=== PATIENT | female | born 1990 | race Caucasian/White ===

== ENCOUNTER 2021-10-01 01:15 | Emergency (ER) | payer BC, SELFPAY ==
[2021-10-01 01:17] VITALS: BP 102/70; PULSE 86; RESP 20; TEMP 36.7; O2SAT 98; BMI 32.8
[2021-10-01 01:26] VITALS: BMI 32.8
--- NOTE | 2021-10-01 01:29 | CT_ITS ---
PROCEDURE INFORMATION: Exam: CT Cervical Spine Without Contrast Exam date and time: 10/01/2021 2:32 AM Age: 31 years old Clinical indication: Neck pain; Additional info: Neck pain, radiating; No trauma; Difficult to turn TECHNIQUE: Imaging protocol: Computed tomography of the cervical spine without contrast. Radiation optimization: All CT scans at this facility use at least one of these dose optimization techniques: automated exposure control; mA and/or kV adjustment per patient size (includes targeted exams where dose is matched to clinical indication); or iterative reconstruction. COMPARISON: No relevant prior studies available. FINDINGS: Bones/joints: No acute fracture. There is straightening of the cervical lordosis which may be positional. No subluxation. Mild degenerative spurring of the atlantoaxial joint anteriorly. Discs/Spinal canal/Neural foramina: No significant disc protrusion. No severe spinal canal stenosis. No significant neural foraminal narrowing. Lungs: Lung apices are normal. Soft tissues: Unremarkable. IMPRESSION: No acute findings.
[2021-10-01 01:37] LABS: Basophils # 0.1 K/mm3 (0-0.2); Basophils % 1.2 % (0.1-2.0); Eosinophils # 0.3 K/mm3 (0.0-0.4); Hematocrit 37.7 % (37.0-47.0); Hemoglobin 13.7 g/dL (12.2-16.2); Lymphocytes # 3.5 K/mm3 (0.7-4.5); Lymphocytes % 28.3 % (10-50); Mean Corpuscular HGB Conc 36.4 g/dL (31.8-35.4); Mean Corpuscular Hemoglobin 33.4 pg (27.0-31.2); Mean Corpuscular Volume 91.8 fl (81-99); Mean Platelet Volume 7.3 fl (7.4-10.4); Monocytes # 0.5 K/mm3 (0.1-1.0); Monocytes % 4.2 % (1.7-9.3); Neutrophils % 64.3 % (37.0-80.0); Platelet Count 314 K/mm3 (142-424); Red Cell Distribution Width 12.7 % (11.5-17.5); White Blood Count 12.5 K/mm3 (4.8-10.8)
[2021-10-01 01:45] LABS: Alanine Aminotransferase 28 U/L (12-78); Albumin Level 4.1 g/dl (3.5-5.0); Albumin/Globulin Ratio 1.3 (1.1-1.8); Alkaline Phosphatase 55 U/L (38-126); Anion Gap 7.2 mEq/L (5-15); Aspartate Amino Transferase 25 U/L (14-36); Blood Urea Nitrogen 15 mg/dl (7-17); Calcium 9.9 mg/dl (8.4-10.2); Carbon Dioxide 31 mmol/L (22.0-30.0); Chloride 104 mmol/L (98-107); Creatinine Clearance Estimated 134 mL/min (50-200); Estimated Glomerular Filt Rate 72 ml/min (>60); GFR (African American) 87 ML/MIN (>60); Globulin 3.1 g/dL (1.3-3.2); Glucose 111 mg/dl (74-100); Potassium 4.2 mmoL/L (3.5-5.1); Sodium 138 mmol/L (136-145); Total Protein,Serum 7.2 g/dl (6.3-8.2)
[2021-10-01 01:46] LABS: Bilirubin,Total < 0.1 mg/dl (0.2-1.3)
[2021-10-01 01:50] LABS: C-Reactive Protein 1.4 mg/L (0-4)
[2021-10-01 01:55] LABS: Appearance,Urine CLEAR (Clear); Bilirubin,Urine Negative (Negative); Blood, Urine Negative (Negative); Color,Urine YELLOW (Yellow); Glucose,Urine (UA) Negative (Negative); Ketones,Urine Negative (Negative); Leukocyte Esterase,Urine Negative (Negative); Microscopic, Urine URINE MICROSCOPIC (MICROSCOPIC); Nitrate,Urine Negative (Negative); Protein,Urine Negative (Negative); Urobilinogen,Urine 0.2 EU/dl (0.2)
[2021-10-01 01:56] LABS: WBC,Urine Occasional #/hpf (0-3)
[2021-10-01 02:00] LABS: HCG Qualitative, Serum Negative (Negative)
[2021-10-01 02:02] LABS: Erythrocyte Sedimentation Rate 15 mm/hr (0-20)
[2021-10-01 02:04] LABS: Procalcitonin 0.031 ng/mL (0.0-2.0)
--- NOTE | 2021-10-01 03:34 | PC.NURSE ---
pt sleeping in bed. SO at bedside.
--- NOTE | 2021-10-01 04:13 | HMH.EDNECK ---
ED Disposition Clinical Impression: Torticollis Disposition: Home, Self-Care Condition on Discharge: Good Instructions: DI for Torticollis Additional Instructions: use meds and use collar as needed - call pcp for follow up Prescriptions: predniSONE [Prednisone 20mg Tab] 20 mg PO BID #10 tab Transmission Status: Pending to [id number] Ketorolac Tromethamine [Toradol 10mg tablet] 10 mg PO Q6HP PRN #10 tab MDD 40mg/day PRN Reason: Moderate To Severe Pain Transmission Status: Pending to [id number] Tizanidine HCl [Zanaflex 4mg tab] 4 mg PO TID #21 tab Transmission Status: Pending to [id number] Referrals: Yoni Ambriz [Primary Care Provider] - - Critical Care Critical Care Time: No Attestation: On 10/01/21, the high probability of a clinically significant, sudden or life threatening deterioration of the following system(s) required my full and direct attention, intervention and personal management. The time I documented below is in addition to time spent performing reported procedures but includes the following listed in this critical care notation. Medical Decision Making - Medical Records Medical records reviewed: Yes: I reviewed the patient's medical records. - Alberto Inquiry Pt receiving controlled substance: No Vital Signs: 10/01/21 01:17 Temperature 98.1 F Temperature Source Oral Pulse Rate [Right] 86 Respiratory Rate 20 Blood Pressure [Right Arm] 102/70 L Blood Pressure Mean [Right Arm] 80 02 Sat by Pulse Oximetry 98 Oxygen Delivery Method Room Air - Lab Data Lab results reviewed: Yes: I reviewed the patient's lab results. Lab Results 10/01/21 01:25: WBC 12.5 H, RBC 4.10 L, Hgb 13.7, Hct 37.7, MCV 91.8, MCH 33.4 H, MCHC 36.4 H, RDW 12.7, Plt Count 314, MPV 7.3 L, Neut % (Auto) 64.3, Lymph % (Auto) 28.3, [place] % (Auto) 4.2, Eos % (Auto) 2.0, Baso % (Auto) 1.2, Neut # (Auto) 8.0 H, Lymph # (Auto) 3.5, [place] # (Auto) 0.5, Eos # (Auto) 0.3, Baso # (Auto) 0.1, ESR 15 10/01/21 01:25: Sodium 138, Potassium 4.2, Chloride 104, Carbon Dioxide 31 H, Anion Gap 7.2, BUN 15, Creatinine 0.90, Estimated Creat Clear 134, Estimated GFR 72, Est GFR ( Amer) 87, Glucose 111 H, Calcium 9.9, Total Bilirubin < 0.1 L, AST 25, ALT 28, Alkaline Phosphatase 55, C-Reactive Protein 1.4, Total Protein 7.2, Albumin 4.1, Globulin 3.1, Albumin/Globulin Ratio 1.3, Procalcitonin 0.031 10/01/21 01:25: Serum HCG, Qual Negative 10/01/21 01:50: Urine Color Yellow, Urine Appearance Clear, Urine pH 7.0, Ur Specific [place] 1.010, Urine Protein Negative, Urine Glucose (UA) Negative, Urine Ketones Negative, Urine Blood Negative, Urine Nitrate Negative, Urine Bilirubin Negative, Urine Urobilinogen 0.2, Ur Leukocyte Esterase Negative, Urine WBC Occasional, Ur Squamous Epith Cells 3-5 Result diagrams: 10/01/21 01:25 10/01/21 01:25 Orders (Tests/Meds): ED MEDICATIONS Generic Name Dose Route Start Last Admin Trade Name Freq PRN Reason Stop Dose Admin Sodium Chloride 1,000 mls @ 999 mls/hr 10/01/21 01:45 10/01/21 01:58 Sod Chlor 0.9% 1000ml Bag IV 10/01/21 02:45 999 mls/hr .Q1H1M DELMI Administration Sodium Chloride 10 ml 10/01/21 03:45 Sodium Chloride 0.9% 10ml Vial IV 10/31/21 03:44 NEEDED PRN to Dilute Lorazepam inj Discontinued Medications Generic Name Dose Route Start Last Admin Trade Name Freq PRN Reason Stop Dose Admin Dexamethasone Sodium Phosphate 8 mg 10/01/21 01:32 10/01/21 01:58 Dexamethasone 4mg/Ml 1ml Vial IV 10/01/21 01:33 8 mg ONCE ONE Administration Hydromorphone HCl 1 mg 10/01/21 03:44 10/01/21 03:48 Hydromorphone 2mg/Ml Syringe IV 10/01/21 03:45 1 mg ONCE ONE Administration Ketorolac Tromethamine 30 mg 10/01/21 01:32 10/01/21 01:58 Ketorolac 30mg/Ml Vial IV 10/01/21 01:33 30 mg ONCE ONE Administration Lorazepam 1 mg 10/01/21 03:45 10/01/21 03:48 Lorazepam 2mg/Ml Vial IV 10/01/21 03:46 1 mg
[2021-10-01 04:49] VITALS: BP 115/63; PULSE 75; RESP 16; TEMP 36.7; O2SAT 95
== END 2021-10-01 04:59 | disposition home or self-care (01) ==
PROVIDERS: Emergency Provider Emergency Medicine; PCP Pediatrics
DX: M43.6 Torticollis (principal)
CPT/HCPCS: 72125; 80053; 81001; 84145; 84703; 85025; 85651; 86140; 96361; 96374; 96375; 99284; J2405

== ENCOUNTER 2022-08-06 13:28 | Emergency (ER) | payer BC, SELFPAY ==
[2022-08-06 14:00] VITALS: BP 121/74; PULSE 101; RESP 18; TEMP 37.1; O2SAT 99; BMI 32.8
[2022-08-06 14:14] LABS: Apearance,Urine Clear (Clear); Bilirubin,Urine Negative (Negative); Blood, Urine Negative (Negative); Color,Urine Yellow (Yellow); Glucose,Urine (UA) Negative (Negative); Ketones,Urine Negative (Negative); Protein,Urine Trace (Negative); UTC Leukocyte Esterase,Urine Negative (Negative); UTC Nitrate,Urine Negative (Negative); Urobilinogen,Urine 0.2 EU/dl (0.2)
[2022-08-06 14:19] LABS: UTC Strep Screen (Rapid) Negative (Negative)
[2022-08-06 14:20] LABS: UTC Pregnancy Test, Urine Negative (Negative)
--- NOTE | 2022-08-06 14:33 | EXP.UTC ---
Discharge Plan Disposition Patient Disposition: Home, Self-Care Condition: Good Prescriptions Prescriptions: New methylprednisolone [Medrol (Vaibhav)] 4 mg tablets,dose pack See Rx Instructions .Route .COMPLEX 6 Days Qty: 21 0RF Rx Instructions: taper pack; amoxicillin-pot clavulanate 875-125 mg Tablet 1 tab PO Q12H Qty: 20 0RF fluticasone propionate [Flonase Allergy Relief] 50 mcg/actuation spray,suspension 1 - 2 spray intranasal DAILY Qty: 16 0RF Rx Instructions: administer into each nostril No Action cyclobenzaprine 10 MG tablet 10 mg PO Q8HP PRN (Reason: back spasm) prednisone 20 MG tablet 20 mg PO BID Qty: 10 0RF tizanidine 4 MG tablet 4 mg PO TID Qty: 21 0RF ketorolac 10 MG tablet 10 mg PO Q6HP MDD 40mg/day PRN (Reason: Moderate To Severe Pain) Qty: 10 0RF Rx Instructions: Therapy initiated with IV/IM dose Referrals Follow up/Referrals: Yoni Ambriz [Primary Care Provider] - See instructions Activity Restrictions/Add. Instructions Additional Instructions/Restrictions: *Monitor Temp, Over the counter Motrin or Tylenol as directed/as needed Tylenol every 4 hours and Motrin every 6 hours (as long as your family doctor has told you that you can take it) for fever or pain. and straight to ER if unable to lower temp less than 101.0 after medication given *Warm salt water gargles may help to soothe the throat *Throat Lozenges? *Warm fluids like tea with honey may help to soothe the throat? *Sleep elevated *Humidifier/Vaporizer *Flonase 2 sprays in each nostril daily but be aware that it may take 2-3 days before you notice improvement Take medication as prescribed Your throat swab was sent for culture. Those results are typically sent to your primary care. Be sure to follow up in 2-3 days with your family doctor/primary care physician if no improvement so they can review those result and treat if necessary. If you don?t have a primary care doctor, I recommend you get one but in the mean time, you will have to return to a walk in clinic Follow up IMMEDIATELY for new or worsening symptoms or no Noticeable improvement over the next 48-72 hours. 911 for difficulty breathing or swallowing Clinical Impressions Clinical Impression: Sinusitis Stand Alone Forms Stand Alone Forms: Work/School Release Instructions Patient Instructions: Sinusitis, Middle Ear Infection, DI for Sinusitis, DI for Sciatica [place] [facility] [place] General Stated complaint: sore throat, body aches, ear pain, Rt side pain Mode of Arrival: Ambulatory Source of Information: Patient Limitations: No Limitations Time Seen by Provider: 08/06/22 14:33 Description of Symptoms (Recalled from Triage Doc. by RN): PATIENT C/O SORE THROAT, BODY ACHES, EAR ACHE, AND RIGHT FLANK PAIN SINCE YESTERDAY HEENT Symptoms (Recalled from RN notes): Yes Resp Symptoms (Recalled from RN notes): No Skin Symptoms (Recalled from RN notes): No MS Symptoms (Recalled from RN notes): No Functional Status (Recalled from RN notes): WNL History of Present Illness Provider Complaint: Patient states that she has been having sore throat, sinus pain and pressure, bilateral ear pain and pressure feeling achy with chills and having achy like pain in her right lower back that goes into her right buttock that is worse at times with movement and sitting States that she has been sick for several days with no improvement and today she was feeling worse so she came in to get checked Related Data Home Medications Medication Instructions Recorded Confirmed cyclobenzaprine 10 mg tablet 10 mg PO Q8HP PRN back spasm 10/01/21 10/01/21 Previous Rx's Medication Instructions Recorded ketorolac 10 mg tablet 10 mg PO Q6HP PRN Moderate To 10/01/21 Severe Pain #10 tabs prednisone 20 mg tablet 20 mg PO BID #10 tabs 10/01/21 tizanidine 4 mg tablet 4 mg PO TID #21 tabs 10/01/21 amoxicill
[2022-08-06 14:47] VITALS: BP 121/74; PULSE 101; RESP 18; TEMP 37.1; O2SAT 99
== END 2022-08-06 14:50 | disposition home or self-care (01) ==
PROVIDERS: Emergency Provider Nurse Practitioner; PCP Pediatrics
DX: J01.90 Acute sinusitis, unspecified (principal); H66.93 Otitis media, unspecified, bilateral; M54.31 Sciatica, right side
CPT/HCPCS: 81003; 81025; 87880; 99204; 99212; G0463

== ENCOUNTER 2023-06-18 20:28 | Emergency (ER) | payer BC, SELFPAY ==
[2023-06-18 20:38] VITALS: BP 121/92; PULSE 86; RESP 18; TEMP 36.4; O2SAT 99; BMI 31.3
--- NOTE | 2023-06-18 20:38 | PC.NURSE ---
I concur with this SN assessment/triage.
--- NOTE | 2023-06-18 20:46 | ED_ITS ---
<Statement entered by Margarita Newell MD - 06/18/23 22:23> I was consulted by the SALLY, and we discussed the complexity of the problems being addressed. I approved the treatment and management plan for this patient's care in the emergency department, thus performing a substantive portion of the medical decision making. Margarita Newell MD, MIGUEL, FACEP Discharge Plan Disposition Patient Disposition: Home, Self-Care Condition: Good Prescriptions Prescriptions: New sulfamethoxazole-trimethoprim [Bactrim DS] 800-160 mg tablet 1 tab PO BID 10 Days Qty: 20 0RF No Action cyclobenzaprine 10 MG tablet 10 mg PO Q8HP PRN (Reason: back spasm) prednisone 20 MG tablet 20 mg PO BID Qty: 10 0RF tizanidine 4 MG tablet 4 mg PO TID Qty: 21 0RF ketorolac 10 MG tablet 10 mg PO Q6HP MDD 40mg/day PRN (Reason: Moderate To Severe Pain) Qty: 10 0RF Rx Instructions: Therapy initiated with IV/IM dose methylprednisolone [Medrol (Vaibhav)] 4 mg tablets,dose pack See Rx Instructions .Route .COMPLEX 6 Days Qty: 21 0RF Rx Instructions: taper pack; amoxicillin-pot clavulanate 875-125 mg Tablet 1 tab PO Q12H Qty: 20 0RF fluticasone propionate [Flonase Allergy Relief] 50 mcg/actuation spray,suspension 1 - 2 spray intranasal DAILY Qty: 16 0RF Rx Instructions: administer into each nostril Referrals Follow up/Referrals: Toñito Rangel MD [Primary Care Provider] - See instructions Activity Restrictions/Add. Instructions Additional Instructions/Restrictions: Please stay hydrated and you may take Tylenol every 8 hours as needed for pain alternating every 4 hours with Motrin. Please call make an appointment within 48 hours to be reevaluated by your PCP. Please return to ER for any worsening or change in symptoms. Clinical Impressions Clinical Impression: Pyelonephritis Discharge ED Provider: Margarita Newell General Adult HPI General Chief complaint: PAIN Stated complaint: right side back pain, painful urination Time Seen by Provider: 06/18/23 20:34 Mode of Arrival: Ambulatory Source of Information: Patient Limitations: No Limitations Description of Symptoms (Recalled from ER Triage Doc. by RN): Pt reports to ED with complaints of right flank pain radiating to right back. Pain has been present for 5 days. Pt also reports pain with urinating. Taking OTC AZO and muscle relaxer. Denies any hx of kidney stones. History of Present Illness HPI narrative: Patient presents for 5 days of right flank pain. Patient states that she has suffered no known trauma although she is caring for her father who is currently ill. Patient however is developed burning with urination over the last 3 days. She does not report any hematuria or vaginal discharge. She denies fever nausea vomiting diarrhea hemoptysis hematochezia melena hematemesis. Related Data Home Medications Medication Instructions Recorded Confirmed cyclobenzaprine 10 mg tablet 10 mg PO Q8HP PRN back spasm 10/01/21 10/01/21 Previous Rx's Medication Instructions Recorded ketorolac 10 mg tablet 10 mg PO Q6HP PRN Moderate To 10/01/21 Severe Pain #10 tabs prednisone 20 mg tablet 20 mg PO BID #10 tabs 10/01/21 tizanidine 4 mg tablet 4 mg PO TID #21 tabs 10/01/21 amoxicillin 875 mg-potassium 1 tab PO Q12H #20 tabs 08/06/22 clavulanate 125 mg tablet fluticasone propionate 50 1 - 2 spray intranasal DAILY #16 08/06/22 mcg/actuation nasal grams spray,suspension (Flonase Allergy Relief) methylprednisolone 4 mg tablets in See Rx Instructions .Route 08/06/22 a dose pack (Medrol (Vaibhav)) .COMPLEX 6 days #21 tabs sulfamethoxazole 800 1 tab PO BID 10 days #20 tabs 06/18/23 mg-trimethoprim 160 mg tablet (Bactrim DS) Allergies Allergy/AdvReac Type Severity Reaction Status Date / Time No Known Allergies Allergy Verified 10/01/21 01:26 [facility] Disclaimer: The information contained in this section may have been updated after the patient was seen, as this information can be updated by other users. Social History (Updated 08/06/22 @ 14:46 by Maryan Clark APRN) Smoking Status: Current every day smoker alcohol intake: never current occupational status: employed Travel in the last 8 weeks: None ROS Obtained: Yes Systems reviewed as appropriate & no additional complaints except as documented Physical Exam General General appearance: alert and in no apparent distress Respiratory Respiratory exam: Present normal lung sounds bilaterally; Absent respiratory distress Cardiovascular Cardiovascular exam: Present regular rate and normal rhythm Abdominal Exam Abdominal exam: Present soft, tenderness (Mildly diffusely tender to palpation in the bilateral lower quadrants) and normal bowel sounds Extremities Exam Extremities exam: Present normal inspection and full ROM Back Exam Back exam: Present normal inspection, full ROM and CVA tenderness (R) (Mildly to percussion) Neurological Exam Neurological exam: Present alert and oriented X3 Medical Decision Making Medical Records Medical records reviewed: Yes I reviewed the patient's medical records. Alberto Inquiry Pt receiving controlled substance: No Vital Signs: 06/18/23 20:38 Temperature 97.6 F Temperature Source Oral Pulse Rate [Right Brachial] 86 Respiratory Rate 18 Blood Pressure [Right Arm] 121/92 H Blood Pressure Mean [Right Arm] 101 Blood Pressure Source [Right Arm] Automatic Cuff Blood Pressure Position [Right Arm] Sitting 02 Sat by Pulse Oximetry 99 Oxygen Delivery Method Room Air Lab Data Lab results reviewed: Yes I reviewed the patient's lab results. Lab Results 06/18/23 20:36: Urine Color Yellow, Urine Appearance Clear, Urine pH 6.0, Ur Specific [place] 1.025, Urine Protein Negative, Urine Glucose (UA) Negative, Urine Ketones Negative, Urine Blood Negative, Urine Nitrate Positive, Urine Bilirubin Negative, Urine Urobilinogen 1.0, Ur Leukocyte Esterase Trace, Urine WBC 5-10, Ur Squamous Epith Cells Occasional, Urine Bacteria 1+ 06/18/23 20:50: WBC 9.8, RBC 4.42, Hgb 13.8, Hct 42.2, MCV 95.7, MCH 31.4 H, MCHC 32.8, RDW 14.0, Plt Count 317, MPV 7.8, Neut % (Auto) 57.4, Lymph % (Auto) 34.0, [place] % (Auto) 5.5, Eos % (Auto) 1.5, Baso % (Auto) 1.7, Neut # (Auto) 5.6, Lymph # (Auto) 3.3, [place] # (Auto) 0.5, Eos # (Auto) 0.1, Baso # (Auto) 0.2, Sodium 137, Potassium 3.9, Chloride 106, Carbon Dioxide 29, Anion Gap 5.9, BUN 17, Creatinine 0.90, Estimated Creat Clear 126, Estimated GFR 72, Est GFR ( Amer) 87, Glucose 79, Calcium 9.5, Total Bilirubin 0.2, AST 31, ALT 26, Alkaline Phosphatase 68, Total Protein 7.5, Albumin 4.0, Globulin 3.5 H, Albumin/Globulin Ratio 1.1, Serum HCG, Qual Negative 06/18/23 20:50 06/18/23 20:50 Orders (Tests/Meds): ED MEDICATIONS Discontinued Medications Generic Name Dose Route Start Last Admin Trade Name Reeseq PRN Reason Stop Dose Admin Acetaminophen 1,000 mg 06/18/23 20:46 06/18/23 21:00 Acetaminophen 1,000mg/100ml Vial IV 06/18/23 20:47 1,000 mg ONCE ONE Administration Lactated Ringer's 1,000 mls @ 999 mls/hr 06/18/23 20:46 06/18/23 21:01 Lactated Ringer's 1000 Ml Bag IV 06/18/23 21:46 999 mls/hr .Q1H1M ONE Administration Iopamidol 75 ml 06/18/23 21:26 06/18/23 21:26 Iopamidol-370 (76%);100ml Bottle IV 06/18/23 21:27 75 ml ONCE ONE Administration Ketorolac Tromethamine 15 mg 06/18/23 20:46 06/18/23 21:00 Ketorolac 30mg/Ml Vial IV 06/18/23 20:47 15 mg ONCE ONE Administration Sodium Chloride 10 ml 06/18/23 21:26 06/18/23 21:26 Sodium Chloride 0.9% 10ml Syr (Rad Only) IV 06/18/23 21:27 10 ml ONCE ONE Administration Trimethoprim/Sulfamethoxazole 1 each 06/18/23 21:34 06/18/23 21:51 Sulfa/Trimethoprim 1 Tablet PO 06/18/23 21:35 1 each ONCE ONE Administration ORDERS Category Date Time Status CT abdomen pelvis w con Stat Cat Scan 06/18/23 20:46 Taken CBC w/Auto Diff [Complete Blood Count Auto Diff] Stat Lab 06/18/23 20:50 Completed CMP [Comprehensive Metabolic Panel] Stat Lab 06/18/23 20:50 Completed HCG Qualitative, Serum Stat Lab 06/18/23 20:50 Completed UA [Urinalysis and Microscopic] Stat Lab 06/18/23 20:36 Completed Medical Decision Narrative: In summary patient is a 42-year-old female who presents to the emergency department for evaluation of 5 days of right flank pain and dysuria. Patient is hemodynamically stable upon arrival, and afebrile. Physical exam is remarkable for mild bilateral lower quadrant tenderness to palpation without rebound guarding or rigidity. Patient has mild CVA tenderness to percussion.. Differential diagnosis includes complicated UTI versus Pylo versus stone. Initial workup will be conducted with hematologic labs urinalysis and CT scan abdomen pelvis. Initial interventions include crystalloid bolus Tylenol and Toradol. Initial workup reviewed by me shows a normal white count with no shift and remainder of her hematologic labs are nonactionable. My informal read of her CT scan abdomen pelvis did not show any acute processes including no stones or hydronephrosis radiology concurred. Urinalysis shows nitrite and leukocyte Estrace positive with microscopic exam showing 5-10 white blood cells and 1+ bacteria. Upon repeat evaluation reports subjective improvement after fluid resuscitation and anti-inflammatories.. Even though we do not see evidence of stranding on imaging she has continued to have flank pain and was the first symptom and still persists. Seems to be much more than just simple cystitis. Thus we will be treating her for presumed pyelonephritis. Given this patient is appropriate for discharge home with close follow-up within 48 hours with her PCP. Patient return sooner if her symptoms worsen or change. Critical Care Critical Care Time Critical Care Time: No
--- NOTE | 2023-06-18 20:46 | CT_ITS ---
PROCEDURE INFORMATION: Exam: CT Abdomen And Pelvis With Contrast Exam date and time: 06/18/2023 9:26 PM Age: 32 years old Clinical indication: Abdominal pain; Flank; Right; Additional info: Right flank pain, dysuria TECHNIQUE: Imaging protocol: Computed tomography of the abdomen and pelvis with contrast. Radiation optimization: All CT scans at this facility use at least one of these dose optimization techniques: automated exposure control; mA and/or kV adjustment per patient size (includes targeted exams where dose is matched to clinical indication); or iterative reconstruction. Contrast material: ISOVUE; Contrast volume: 875 ml; Contrast route: IV; COMPARISON: No relevant prior studies available. FINDINGS: Liver: Normal. No mass. Gallbladder and bile ducts: Normal. No calcified stones. No ductal dilation. Pancreas: Normal. No ductal dilation. Spleen: Normal. No splenomegaly. Adrenal glands: Normal. No mass. Kidneys and ureters: Normal. No hydronephrosis. Stomach and bowel: Unremarkable. No obstruction. No mucosal thickening. Appendix: No evidence of appendicitis. Intraperitoneal space: Unremarkable. No free air. No significant fluid collection. Vasculature: Unremarkable. No abdominal aortic aneurysm. Lymph nodes: Unremarkable. No enlarged lymph nodes. Urinary bladder: Unremarkable as visualized. Reproductive: Unremarkable as visualized. Bones/joints: Unremarkable. No acute fracture. Soft tissues: Unremarkable. IMPRESSION: No acute findings.
[2023-06-18] MEDS: ACETAMINOPHEN 1,000MG/100ML VIAL 1000 MG IV (21:00)
[2023-06-18] MEDS: KETOROLAC 30MG/ML VIAL 15 MG IV (21:00)
[2023-06-18 21:01] LABS: Microscopic, Urine URINE MICROSCOPIC (MICROSCOPIC)
[2023-06-18] MEDS: LACTATED RINGERS 1000ML 1,000 ML 999 ML IV (21:01)
[2023-06-18 21:04] LABS: Basophils # 0.2 K/mm3 (0-0.2); Basophils % 1.7 % (0.1-2.0); Eosinophils # 0.1 K/mm3 (0.0-0.4); Eosinophils % 1.5 % (0.1-12.0); Hematocrit 42.2 % (37.0-47.0); Hemoglobin 13.8 g/dL (12.2-16.2); Lymphocytes # 3.3 K/mm3 (0.7-4.5); Mean Corpuscular HGB Conc 32.8 g/dL (31.8-35.4); Mean Corpuscular Hemoglobin 31.4 pg (27.0-31.2); Mean Corpuscular Volume 95.7 fl (81-99); Mean Platelet Volume 7.8 fl (7.4-10.4); Monocytes # 0.5 K/mm3 (0.1-1.0); Monocytes % 5.5 % (1.7-9.3); Neutrophils # 5.6 K/mm3 (1.8-7.8); Neutrophils % 57.4 % (37.0-80.0); Platelet Count 317 K/mm3 (142-424); Red Blood Count 4.42 M/mm3 (4.20-5.40); White Blood Count 9.8 K/mm3 (4.8-10.8)
[2023-06-18 21:06] LABS: Appearance,Urine CLEAR (Clear); Bilirubin,Urine Negative (Negative); Blood, Urine Negative (Negative); Color,Urine YELLOW (Yellow); Glucose,Urine (UA) Negative (Negative); Ketones,Urine Negative (Negative); Leukocyte Esterase,Urine TRACE (Negative); Nitrate,Urine POSITIVE (Negative); Protein,Urine Negative (Negative); Specific Gravity, Urine 1.025 (1.005-1.030)
[2023-06-18 21:06] LABS: Chloride 106 mmol/L (98-107); Potassium 3.9 mmoL/L (3.5-5.1); Sodium 137 mmol/L (136-145)
[2023-06-18 21:08] LABS: Blood Urea Nitrogen 17 mg/dl (7-17); Creatinine Clearance Estimated 126 mL/min (50-200); Estimated Glomerular Filt Rate 72 ml/min (>60); GFR (African American) 87 ML/MIN (>60)
[2023-06-18 21:09] LABS: Alanine Aminotransferase 26 U/L (12-78); Albumin/Globulin Ratio 1.1 (1.1-1.8); Alkaline Phosphatase 68 U/L (38-126); Anion Gap 5.9 mEq/L (5-15); Aspartate Amino Transferase 31 U/L (14-36); Bilirubin,Total 0.2 mg/dl (0.2-1.3); Calcium 9.5 mg/dl (8.4-10.2); Carbon Dioxide 29 mmol/L (22.0-30.0); Globulin 3.5 g/dL (1.3-3.2); Glucose 79 mg/dl (74-100); Total Protein,Serum 7.5 g/dl (6.3-8.2)
[2023-06-18 21:19] LABS: HCG Qualitative, Serum Negative (Negative)
[2023-06-18 21:20] LABS: Bacteria,Urine 1+ /lpf; Squamous Epithelial Cell,Urine Occasional #/hpf (0-5)
[2023-06-18] MEDS: IOPAMIDOL-370 (76%);100ML BOTTLE 75 ML IV (21:26)
[2023-06-18] MEDS: SODIUM CHLORIDE 0.9% 10ML SYR (RAD ONLY) 10 ML IV (21:26)
[2023-06-18] MEDS: SULFA/TRIMETHOPRIM 1 TABLET 1 EACH PO (21:51)
[2023-06-18 21:54] VITALS: BP 114/77; PULSE 84; O2SAT 97
[2023-06-18 22:00] VITALS: BP 128/84; PULSE 81; O2SAT 97
[2023-06-18 22:31] VITALS: BP 128/84; PULSE 81; RESP 18; TEMP 36.7; O2SAT 98
== END 2023-06-18 22:33 | disposition home or self-care (01) ==
PROVIDERS: Physician Assistant; Emergency Provider Student in an Organized Health Care Education/Training Program; PCP Pediatrics
DX: N10 Acute pyelonephritis (principal); M54.59 Other low back pain; F17.210 Nicotine dependence, cigarettes, uncomplicated
CPT/HCPCS: 74177; 80053; 81001; 84703; 85025; 96361; 96374; 96375; 99284; J0131; Q9967

== ENCOUNTER 2023-07-18 08:59 | Emergency (ER) | payer BC, SELFPAY ==
[2023-07-18 09:25] VITALS: BP 130/85; PULSE 71; RESP 20; TEMP 36.7; O2SAT 100; BMI 31.9
--- NOTE | 2023-07-18 09:35 | ED_ITS ---
Discharge Plan Disposition Patient Disposition: Home, Self-Care Condition: Good Prescriptions Prescriptions: New amoxicillin 875 mg tablet 875 mg PO Q12H Qty: 20 0RF ibuprofen [IBU] 800 mg tablet 800 mg PO TIDP PRN (Reason: Moderate Pain) Qty: 20 0RF methylprednisolone [Medrol (Vaibhav)] 4 mg tablets,dose pack See Rx Instructions .Route .COMPLEX 6 Days Qty: 21 0RF Rx Instructions: taper pack; Referrals Follow up/Referrals: Yoni Ambriz [Primary Care Provider] - See instructions Activity Restrictions/Add. Instructions Additional Instructions/Restrictions: Follow up with your Family Doctor for further evaluation and treatment if pain persists Follow up with Dentist for further evaluation and examination Take medications as prescribed Straight to ER if any life threatening symptoms Clinical Impressions Clinical Impression: Otitis media, Temporomandibular joint (TMJ) pain Stand Alone Forms Stand Alone Forms: Work/School Release Instructions Patient Instructions: Middle Ear Infection, DI for Temporomandibular Disorder Discharge ED Provider: Maryan Clark [facility] General Stated complaint: left jaw and ear pain Mode of Arrival: Ambulatory Source of Information: Patient Limitations: No Limitations Time Seen by Provider: 07/18/23 09:35 Description of Symptoms (Recalled from Triage Doc. by RN): PATIENT C/O LEFT JAW PAIN THAT STARTED SUNDAY AND RADIATES INTO EAR AND TEETH HEENT Symptoms (Recalled from RN notes): Yes Resp Symptoms (Recalled from RN notes): No Skin Symptoms (Recalled from RN notes): No MS Symptoms (Recalled from RN notes): No Functional Status (Recalled from RN notes): WNL History of Present Illness Provider Complaint: Patient states that she has been having pain in her left jaw area on and off since Sunday that will shoot pain into her left ear and her teeth hurts worse with movement States that she is not sure if it is her ear or her teeth and her teeth feel sore States that she wasnt sure if her ear or teeth is causing the issues and unsure if she may grind her teeth at night Related Data Previous Rx's Medication Instructions Recorded amoxicillin 875 mg tablet 875 mg PO Q12H #20 tabs 07/18/23 ibuprofen 800 mg tablet (IBU) 800 mg PO TIDP PRN Moderate Pain 07/18/23 #20 tabs methylprednisolone 4 mg tablets in See Rx Instructions .Route 07/18/23 a dose pack (Medrol (Vaibhav)) .COMPLEX 6 days #21 tabs Allergies Allergy/AdvReac Type Severity Reaction Status Date / Time No Known Allergies Allergy Verified 10/01/21 01:26 Worker's Comp Is this a Worker's Comp case?: No PFSH [facility] Disclaimer: The information contained in this section may have been updated after the patient was seen, as this information can be updated by other users. Medical History (Updated 07/18/23 @ 09:47 by Maryan Clark APRN) No significant past medical history Social History (Updated 08/06/22 @ 14:46 by Maryan Clark APRN) Smoking Status: Current every day smoker alcohol intake: never current occupational status: employed Travel in the last 8 weeks: None ROS Obtained: Yes All systems reviewed & no additional complaints except as documented and Yes Systems reviewed as appropriate & no additional complaints except as documented Constitutional Constitutional: Reports system reviewed and no additional complaints, except as documented and Reports as per HPI ENT Ears, Nose, Mouth, and Throat: Reports system reviewed and no additional complaints, except as documented, Reports as per HPI, Reports dental pain, Reports otalgia and Reports other (pain in TMJ area on left jaw that is worse with movement) Cardiovascular Cardiovascular: Reports system reviewed and no additional complaints, except as documented, Reports as per HPI, Denies chest pain, Denies dyspnea on exertion, Denies edema, Denies lightheadedness and Denies palpitations Respiratory Respiratory: Reports system reviewed and no additional complaints, except as documented, Reports as per HPI and Denies dyspnea on exertion Gastrointestinal Gastrointestingal: Reports system reviewed and no additional complaints, except as documented and as per HPI Endocrine Endocrine: Denies palpitations Physical Exam General General appearance: alert and in no apparent distress Expanded Head Exam Head image: 2 1. reports tenderness in TMJ area with palpation, able to open mouth and speak clearly ENT ENT exam: Present mucous membranes moist Expanded ENT Exam TM/Canal exam: Left TM: erythema and bulging Respiratory Respiratory exam: Present normal lung sounds bilaterally; Absent respiratory distress or wheezes Cardiovascular Cardiovascular exam: Present regular rate, normal rhythm and normal heart sounds Neurological Exam Neurological exam: Present alert, oriented X3 and normal gait Medical Decision Making Alberto Inquiry Pt receiving controlled substance: No Alberto was queried for this patient: No Vital Signs: 07/18/23 09:25 Temperature 98.0 F Temperature Source Oral Pulse Rate [Left Brachial] 71 Respiratory Rate 20 Blood Pressure [Left Arm] 130/85 Blood Pressure Mean [Left Arm] 100 Blood Pressure Source [Left Arm] Automatic Cuff Blood Pressure Position [Left Arm] Sitting 02 Sat by Pulse Oximetry 100 Oxygen Delivery Method Room Air Lab Data Lab results reviewed: Yes I reviewed the patient's lab results.
[2023-07-18 09:47] LABS: UTC Pregnancy Test, Urine Negative (Negative)
[2023-07-18 09:57] VITALS: BP 130/85; PULSE 71; RESP 20; TEMP 36.7; O2SAT 100
== END 2023-07-18 10:01 | disposition home or self-care (01) ==
PROVIDERS: Emergency Provider Nurse Practitioner; PCP Pediatrics
DX: H66.92 Otitis media, unspecified, left ear (principal); M26.629 Arthralgia of temporomandibular joint, unspecified side
CPT/HCPCS: 81025; 99212; 99214; G0463